=== PATIENT | male | born 1995 | race African-American/Black ===

== ENCOUNTER 2019-04-12 18:43 | Emergency (ER) | payer MEDICAID ==
[~2019-04-12] VITALS: Ht 180.3 cm; Wt 77.0 kg
[2019-04-12] MEDS ORDERED: ONDANSETRON HCL 4MG/2ML INJ IV STA (19:06)
[2019-04-12] MEDS ORDERED: SODIUM CHLORIDE 0.9% 1,000 ML IV ONE (19:06)
[2019-04-12] MEDS ORDERED: MORPHINE SULFATE 4 MG/ML CPJ (NOT FOR IM USE) IV STA (19:06)
[2019-04-12] MEDS ORDERED: FAMOTIDINE 20MG/2ML VIAL IV ONE (19:15)
[2019-04-12] MEDS ORDERED: MAGNESIUM/ALUMINUM HYDROXIDE/SIMETHICONE 30ML UDC PO ONE (19:15)
[2019-04-12 20:20] LABS: BASOPHILS % 1.2 % (0.0-2.0); EOSINOPHILS % 3.7 % (0.0-5.0); HEMATOCRIT. 42.1 % (42.0-52.0); HEMOGLOBIN. 13.9 g/dL (14.0-18.0); LYMPHOCYTES % 37.8 % (20.0-50.0); MEAN CORPUSCULAR HEMOGLOBIN 28.5 pg (28.0-32.0); MEAN CORPUSCULAR VOLUME 86.6 fL (80.0-94.0); MEAN PLATELET VOLUME 9.2 fl (7.4-10.4); MONOCYTES % 7.3 % (2.0-8.0); PLATELET 203 x1000/uL (130-400); RED BLOOD CELL COUNT 4.86 mill/uL (4.7-6.1); RED CELL DISTRIBUTION WIDTH 12.8 % (11.6-14.6)
[2019-04-12 20:22] LABS: CHLORIDE 107 mEq/L (98-107)
[2019-04-12 20:26] LABS: ETHANOL BLOOD < 10 mg/dL
[2019-04-12 22:31] VITALS: BP 126/74
== END 2019-04-12 22:33 | disposition home or self-care (01) ==
LOC: ER 18:43
DX: N32.9 Bladder disorder, unspecified (principal); R31.0 Gross hematuria; F12.90 Cannabis use, unspecified, uncomplicated; R03.0 Elevated blood-pressure reading, without diagnosis of hypertension
CPT/HCPCS: 36415; 74176; 80053; 80320; 85025; 87040; 96374; 96375; 99285; J2270; J2405; J3490; J7030; G0480

== ENCOUNTER 2021-04-16 10:31 | Emergency (ER) | payer MEDICAID ==
[~2021-04-16] VITALS: Ht 180.3 cm; Wt 75.0 kg
[2021-04-16] MEDS ORDERED: XANAX (10:45)
[2021-04-16] MEDS ORDERED: METOCLOPRAMIDE HCL 10MG/2ML VIAL IV ONE (11:15)
[2021-04-16] MEDS ORDERED: DIPHENHYDRAMINE 50MG/ML VIAL IV ONE (11:15)
[2021-04-16] MEDS ORDERED: FLUORESCEIN SODIUM 1MG/STRIP RIGHTEYE ONE (11:15)
[2021-04-16] MEDS ORDERED: TETRACAINE 0.5% OPHTH DROPS 4ML RIGHTEYE ONE (11:15)
[2021-04-16] MEDS ORDERED: SODIUM CHLORIDE 0.9% 1,000 ML IV ONE (11:15)
[2021-04-16] MEDS ORDERED: KETOROLAC 15MG/ML VIAL IV ONE (11:15)
[2021-04-16 12:13] VITALS: BP 118/68
== END 2021-04-16 14:37 | disposition home or self-care (01) ==
LOC: ER 10:31
DX: G44.009 Cluster headache syndrome, unspecified, not intractable (principal); F12.10 Cannabis abuse, uncomplicated; Z88.6 Allergy status to analgesic agent
CPT/HCPCS: 96361; 96374; 96375; 99284; J1200; J1885; J2765; J7030; Z7610

== ENCOUNTER 2023-02-09 19:49 | Emergency (ER) | payer MEDICAID ==
[~2023-02-09] VITALS: Ht 177.8 cm; Wt 72.6 kg
[~2023-02-09 19:49] MED LIST: XANAX
[2023-02-09 19:55] VITALS: BP 123/82; PULSE 100; RESP 16; TEMP 98.2; O2SAT 100
== END 2023-02-09 23:00 | disposition left against medical advice (07) ==
LOC: ER 19:49
DX: Z53.21 Procedure and treatment not carried out due to patient leaving prior to being seen by health care provider (principal)
CPT/HCPCS: 73110; 99281